=== PATIENT | female | born 1950 ===

== ENCOUNTER 2024-02-20 06:42 | Day surgery (SDC) | payer MEDICARE, OTHER, SELFPAY ==
[2024-02-20 08:58] VITALS: BMI 19.3
[2024-02-20 09:11] VITALS: BP 144/71
[2024-02-20 09:28] VITALS: BMI 19.3
[2024-02-20 12:35] VITALS: BP 124/77
[2024-02-20 12:45] VITALS: BP 132/93
[2024-02-20 13:00] VITALS: BP 148/81
== END 2024-02-20 13:40 | disposition home or self-care (01) ==
LOC: GI 06:42
PROVIDERS: ATTENDING PHYSICIAN Internal Medicine Gastroenterology
DX: D12.3 Benign neoplasm of transverse colon (principal); K64.0 First degree hemorrhoids; Z98.0 Intestinal bypass and anastomosis status; K57.30 Diverticulosis of large intestine without perforation or abscess without bleeding; Z98.890 Other specified postprocedural states
CPT/HCPCS: 45390; 88305

== ENCOUNTER 2024-08-20 06:21 | Day surgery (SDC) | payer MEDICARE, OTHER, SELFPAY ==
[2024-08-20 13:30] VITALS: BMI 19.7
[2024-08-20 13:35] VITALS: BP 154/87
[2024-08-20 13:36] VITALS: BMI 19.7
[2024-08-20 15:39] VITALS: BP 112/74
[2024-08-20 15:45] VITALS: BP 120/77
[2024-08-20 16:00] VITALS: BP 116/73
[2024-08-20 16:15] VITALS: BP 133/70
== END 2024-08-20 16:30 | disposition home or self-care (01) ==
LOC: SDS 06:21
PROVIDERS: ATTENDING PHYSICIAN Internal Medicine Gastroenterology
DX: Z09 Encounter for follow-up examination after completed treatment for conditions other than malignant neoplasm (principal); K63.89 Other specified diseases of intestine; K57.30 Diverticulosis of large intestine without perforation or abscess without bleeding; T18.4XXA Foreign body in colon, initial encounter; Y83.1 Surgical operation with implant of artificial internal device as the cause of abnormal reaction of the patient, or of later complication, without mention of misadventure at the time of the procedure; K64.0 First degree hemorrhoids; Z86.0101 Personal history of adenomatous and serrated colon polyps; Z98.890 Other specified postprocedural states; Z98.0 Intestinal bypass and anastomosis status
CPT/HCPCS: 45380; 88305